=== PATIENT | male | born 1950 | race Caucasian/White ===

== ENCOUNTER → 2019-12-28 06:00 | Outpatient (CLI) | payer OTHER ==
[~2019-12-28 06:00] MED LIST: COZAAR25 MG PO; CRESTOR20 MG PO; GABAPENTIN800 M1 PO; METFORMIN HCL500 M3 PO; RESTORIL30 M1 PO
== END | disposition home or self-care (01) ==
LOC: EKG 06:00 → EDSTATUS 01-02 08:40 → CIR.AMB 01-02 14:02
DX: K40.91 Unilateral inguinal hernia, without obstruction or gangrene, recurrent (principal); I10 Essential (primary) hypertension

== ENCOUNTER 2020-02-20 06:00 | Day surgery (SDC) | payer OTHER ==
[~2020-02-20 06:00] MED LIST changes: +ESCITALOPRAM OX10 MG PO; +VITAMIN E400 UNI2 PO
[2020-02-20] MEDS ORDERED: PERCOCET 5-3251 EACH PO (10:15)
[2020-02-20] MEDS ORDERED: POLY119PG PO (10:16)
== END 2020-02-20 12:22 | disposition home or self-care (01) ==
LOC: CIR.AMB 06:00
DX: K40.90 Unilateral inguinal hernia, without obstruction or gangrene, not specified as recurrent (principal)